=== PATIENT | male | born 1995 | race Hispanic/Latino ===

== ENCOUNTER → 2023-03-03 | Outpatient (CLI) | payer OTHER | LOC: M PLAIMG 09:51 | PROVIDERS: ATTEND Physician Assistant | DX: R07.9 Chest pain, unspecified (principal) ==

== ENCOUNTER → 2023-11-01 | Outpatient (CLI) | payer OTHER | LOC: M RAD 08:34 | PROVIDERS: ATTEND Surgery | DX: R10.11 Right upper quadrant pain (principal) ==